=== PATIENT | male | born 1960 | race Caucasian/White ===

== ENCOUNTER 2016-04-07 12:26 | Emergency (ER) | payer OTHER ==
[2016-04-07 12:51] VITALS: BP 122/72; PULSE 80; RESP 18; TEMP 98; O2SAT 97
--- NOTE | 2016-04-07 12:57 | UCPHY ---
H & P Time Seen by Provider: 04/07/16 12:43 Patient Type: Established HPI/ROS: HPI Rectal pain. 55-year-old male by private vehicle. He has a prior history of anal fissures. He presents the emergency department complaining of sharp intense anal pain with hard bowel movements. Onset a few days ago. He has been taking some type of a pill laxative which is not been helping. He denies any significant bleeding. He has had some blood on the toilet paper and mixed with his hard bowel movements. He has had this type pain before and has been diagnosed with a anal fissure. He had a clean colonoscopy 8 years ago. ROS: Constitutional: No fever, no chills. No weakness. Gastrointestinal: No abdominal pain, no vomiting, no diarrhea. As above Genitourinary: As above Musculoskeletal: No back pain. No neck pain. No myalgias or arthralgias. Skin: No rashes. Neurological: No focal weakness or altered sensation. Past medical history: As above. Social history: Here by himself Physical Exam: General Appearance: Alert, no distress. This patient is responding to questions appropriately and in full sentences. This patient appears well- hydrated and well-nourished. Eyes: Pupils equal and round no pallor or injection. No lid edema, erythema or injection. Rectal exam: He has a 1 cm exposed anal fissure 1 o'clock position. No active bleeding. There are some small non thrombosed hemorrhoids as well. Rectal exam otherwise unremarkable. Neurological: Motor sensory function is grossly intact. Cranial nerves are normal. Gait is normal. Skin: Warm and dry, no rashes. Musculoskeletal: Neck is supple and nontender. Extremities are symmetrical. All joints range without pain or impingement. Database: EKG: Imaging: Procedures: Emergency department course: After my evaluation, I recommended treatment with Metamucil/psyllium fiber. Dosing was discussed. I explained that it would take 2-3 days to soften his stools. Once his stools have soften the fissure will be able to heal. All of his questions were answered. Return to Urgent Care precautions discussed. Follow-up reviewed. He was discharged in good condition. Differential Diagnosis: The differential diagnosis on this patient includes but is not limited to anal fissure. Thrombosed hemorrhoid, perianal abscess unlikely. This represents a partial list of diagnoses considered. These considerations are based on history , physical exam, past history and reassessment. Constitutional: Initial Vital Signs Temperature (C) 36.6 C 04/07/16 12:47 Heart Rate 80 04/07/16 12:47 Respiratory Rate 18 04/07/16 12:47 Blood Pressure 122/72 H 04/07/16 12:47 O2 Sat (%) 97 04/07/16 12:47 O2 Delivery Mode Room Air Allergies/Adverse Reactions: No Known Allergies Allergy (Unverified 04/07/16 12:46) Home Medications: Medication Instructions Recorded Lisinopril 04/07/16 Prilosec 20 mg 04/07/16 MDM/Departure - Depart Disposition: Home, Routine, Self-Care Clinical Impression: Constipation, Anal fissure Condition: Good Instructions: High Fiber Diet (ED), Constipation (ED), Anal Fissure (ED) Additional Instructions: Read and follow provided instructions. Follow-up with your primary care physician in 2-3 days for re-evaluation as needed. Go to pharmacy. Ask pharmacist about Metamucil/psyllium fiber to be taken daily for treatment of constipation and anal fissure. Initial dosing should be 1 tbsp 2 to 3 times a day with meals. Allow 3 days for this to take effect. Then most importantly you have to be consistent with it. You should be able to back down to twice a day usage with good maintenance of soft stools. Return to the emergency department for worsening pain, fever, sensation of swelling, bleeding or other serious concerns. Referrals: NONE *PRIMARY CARE P,. [Primary Care Provider] - As per Instructions - PQRS PQRS Measurement: Not applicable.
== END 2016-04-07 13:02 | disposition home or self-care (01) ==
LOC: CED 12:26
DX: K59.00 Constipation, unspecified (principal); K60.2 Anal fissure, unspecified
CPT/HCPCS: G0463-PO